=== PATIENT | male | born 1990 | race Caucasian/White ===

== ENCOUNTER 2017-11-08 22:20 | Emergency (ER) | payer SELFPAY ==
[~2017-11-08] VITALS: Ht 185.4 cm; Wt 82.6 kg
[2017-11-08] MEDS ORDERED: FAMOTIDINE 20 MG TABLET ONE (23:23)
[2017-11-08] MEDS ORDERED: diphenhydrAMINE 50 MG/1 ML VIAL ONE (23:23)
[2017-11-08] MEDS ORDERED: predniSONE 20 MG TABLET ONE (23:24)
[2017-11-08] MEDS ORDERED: predniSONE 20 MG TABLET PO ONE (23:30)
[2017-11-08] MEDS ORDERED: diphenhydrAMINE 50 MG/1 ML VIAL IM ONE (23:30)
[2017-11-08] MEDS ORDERED: FAMOTIDINE 20 MG TABLET PO ONE (23:30)
[2017-11-09 00:31] VITALS: BP 109/72
== END 2017-11-09 00:32 | disposition home or self-care (01) ==
LOC: ER 22:24
DX: J02.8 Acute pharyngitis due to other specified organisms (principal); B97.89 Other viral agents as the cause of diseases classified elsewhere; T36.3X5A Adverse effect of macrolides, initial encounter; Y92.89 Other specified places as the place of occurrence of the external cause
CPT/HCPCS: 36415; 86403; 87070; A4663; J1200; J7512